=== PATIENT | female | born 1985 | race African-American/Black ===

== ENCOUNTER 2025-02-04 21:09 | Emergency (ER) | payer OTHER, SELFPAY ==
[2025-02-04] MEDS ORDERED: Ketorolac Tromethamine 30 MG (1 mL) VIAL ONE (22:04)
[2025-02-04] MEDS ORDERED: Bacitracin 1 PK ONE (23:10)
== END 2025-02-04 23:30 | disposition home or self-care (01) ==
LOC: CSHERS 21:09
DX: S91.051A Open bite, right ankle, initial encounter (principal); F17.210 Nicotine dependence, cigarettes, uncomplicated; Z23 Encounter for immunization; W54.0XXA Bitten by dog, initial encounter
CPT/HCPCS: 12002; 90471; 90715; 96372; J1885